=== PATIENT | male | born 1960 | race African-American/Black ===

== ENCOUNTER 2016-10-05 11:14 | Emergency (ER) | payer MEDICAID ==
[~2016-10-05] VITALS: Ht 180.3 cm; Wt 114.0 kg
[~2016-10-05 11:14] MED LIST: AMLO10TA4 PO; ASPI-1035 PO
[2016-10-05] MEDS ORDERED: VANCOMYCIN 1 G PREMIX 200 ML IV SCH (15:15)
[2016-10-05] MEDS ORDERED: LEVOFLOXACIN 750MG PREMIX 150 ML IV ONE (15:15)
[2016-10-05 15:45] VITALS: BP 162/76
[2016-10-05 16:10] LABS: BASOPHILS % 1.2 % (0.0-2.0); EOSINOPHILS % 3.3 % (0.0-5.0); HEMATOCRIT. 38.9 % (42.0-52.0); HEMOGLOBIN. 13.2 g/dL (14.0-18.0); LYMPHOCYTES % 29.7 % (20.0-50.0); MEAN CORPUSCULAR HEMOGLOBIN 29.9 pg (28.0-32.0); MEAN CORPUSCULAR HGB CONC 33.8 g/dL (31.0-37.0); MEAN CORPUSCULAR VOLUME 88.5 fL (80.0-94.0); MEAN PLATELET VOLUME 7.8 fl (7.4-10.4); MONOCYTES % 9.9 % (2.0-8.0); NEUTROPHILS % 55.9 % (40.0-76.0); PLATELET 253 x1000/uL (130-400); RED CELL DISTRIBUTION WIDTH 14.2 % (11.6-14.6); WHITE BLOOD COUNT 6.5 x1000/uL (4.5-11.0)
[2016-10-05 16:15] LABS: INR 1.1; PROTHROMBIN TIME 10.9 sec
[2016-10-05 16:16] LABS: ALBUMIN 3.6 g/dL (3.4-5.0); ANION GAP 13; CALCIUM 8.6 mg/dL (8.5-10.1); CARBON DIOXIDE 27 mEq/L (21-32); CHLORIDE 106 mEq/L (98-107); INDEX HEMOLYSI 1 (1-3); INDEX ICTERIC 1 (1-4); INDEX LIPEMIC 1 (1-3); UREA NITROGEN BLOOD 14 mg/dL (7-21)
[2016-10-05 16:24] LABS: ALANINE AMINOTRANSFERASE 39 IU/L (13-61); NT PRO B-TYPE NATRIURETIC PEP 762 pg/mL (5-125); TROPONIN I 0.04 ng/mL (0.00-0.04); eGFR > 60 mL/min (>60)
== END 2016-10-05 18:48 | disposition home or self-care (01) ==
LOC: ER 11:22
DX: L03.116 Cellulitis of left lower limb (principal); L03.115 Cellulitis of right lower limb; H40.9 Unspecified glaucoma; M19.90 Unspecified osteoarthritis, unspecified site; I11.9 Hypertensive heart disease without heart failure; Z79.82 Long term (current) use of aspirin
CPT/HCPCS: 36415; 71010; 80053; 83880; 84484; 85025; 85610; 93005; 93970; 99285; Z7610